=== PATIENT | male | born 1960 | race Caucasian/White ===

== ENCOUNTER → 2021-06-05 | Outpatient (CLI) | payer OTHER ==
[~2021-06-05] MED LIST: ALPRAZOLAM; AMBIEN 10 MG TA10 MG; ASPIRIN325; CARVEDILOL3.125 MG; DIPHENHYDRAMINE25 M3 PO; FISH OIL 1,0001 EAC5; HYDROXYZINE HCL50 MG PO; PLAVIX 75 MG TA75 MG; PRINIVIL5 MG; ZOCOR 20 MG TAB20 M1
== END ==
LOC: SJCVCIMAG 05-13 14:29
PROVIDERS: ATTEND Internal Medicine Cardiovascular Disease
DX: I25.10 Atherosclerotic heart disease of native coronary artery without angina pectoris (principal); Z95.1 Presence of aortocoronary bypass graft